=== PATIENT | male | born 1985 | race African-American/Black ===

== ENCOUNTER 2019-02-06 11:29 | Emergency (ER) | payer MEDICAID ==
[~2019-02-06] VITALS: Ht 193 cm; Wt 100.0 kg
[2019-02-06 13:01] VITALS: BP 110/72
== END 2019-02-06 13:02 | disposition home or self-care (01) ==
LOC: ER 11:29
DX: R22.2 Localized swelling, mass and lump, trunk (principal)
CPT/HCPCS: 99281